=== PATIENT | female | born 2000 | race Caucasian/White ===

== ENCOUNTER 2020-11-13 12:48 | Outpatient (CLI) | payer BC ==
[~2020-11-13 12:48] MED LIST: NORCO 5-325 TA1 EACH PO; PREDNISONE 20 M20 MG GT; VENTOLIN HFA 66.7 GM INH
== END 2020-11-13 14:15 | disposition home or self-care (01) ==
LOC: GENOP 12:48
DX: O46.93 Antepartum hemorrhage, unspecified, third trimester (principal); Z3A.29 29 weeks gestation of pregnancy
CPT/HCPCS: 81001; G0463

== ENCOUNTER 2021-01-15 16:43 | Inpatient (IN) | payer BC, OTHER ==
[~2021-01-15] VITALS: Ht 170.2 cm; Wt 124.7 kg
[2021-01-15 17:25] LABS: HEMOGLOBIN 12.4 gm/dl (12.3-15.3); RED BLOOD COUNT 4.34 M/UL (4.00-5.10); WHITE BLOOD COUNT 8.2 K/UL (4.5-11.0)
[2021-01-15] MEDS ORDERED: PRENATAL VITAM1 EAC3 PO (17:30)
[2021-01-16] MEDS ORDERED: COLACE 100MG C100 MG PO (16:48)
[2021-01-16] MEDS ORDERED: IBUPROFEN600 MG PO (16:48)
[2021-01-17 06:50] LABS: HEMOGLOBIN 11.2 gm/dl (12.3-15.3)
== END 2021-01-17 19:24 | disposition home or self-care (01) | DRG 807 ==
LOC: GENOP 16:43 → OB 16:56
PROVIDERS: Obstetrics & Gynecology; ADMIT Obstetrics & Gynecology
PROC: 10E0XZZ Delivery of Products of Conception, External Approach (ICD-10-PCS; principal; 2021-01-15)
PROC: 0U7C7ZZ Dilation of Cervix, Via Natural or Artificial Opening (ICD-10-PCS; 2021-01-15)
PROC: 3E033VJ Introduction of Other Hormone into Peripheral Vein, Percutaneous Approach (ICD-10-PCS; 2021-01-15)
PROC: 10907ZC Drainage of Amniotic Fluid, Therapeutic from Products of Conception, Via Natural or Artificial Opening (ICD-10-PCS; 2021-01-15)
PROC: 0HQ9XZZ Repair Perineum Skin, External Approach (ICD-10-PCS; 2021-01-15)
DX: O13.3 Gestational [pregnancy-induced] hypertension without significant proteinuria, third trimester (principal); Z37.0 Single live birth; Z3A.38 38 weeks gestation of pregnancy; O99.343 Other mental disorders complicating pregnancy, third trimester; O70.0 First degree perineal laceration during delivery
CPT/HCPCS: 36415; 81001; 82800; 85014; 85018; 85025; 90715; J0595; J2590; J2795; J7120; U0003